=== PATIENT | female | born 1990 | race Caucasian/White ===

== ENCOUNTER → 2020-09-25 16:36 | Outpatient (CLI) | payer OTHER, SELFPAY ==
--- NOTE | ~2020-09-25 | XR_ITS ---
XR chest 2V DATE: 09/25/2020 16:53 INDICATION: Acute lower respiratory infection TECHNIQUE: PA and lateral views COMPARISON: None FINDINGS: Normal heart size. No hilar or mediastinal enlargement. Bilateral hyperinflation. No pulmonary infiltrate or consolidation, pleural effusion or pulmonary vascular congestion or pneumo thorax. IMPRESSION: Bilateral hyperinflation. Reviewed, dictated and finalized at location A. Y PROCESSOR IMPRESSION: Bilateral hyperinflation.
== END ==
PROVIDERS: Visit Provider Family Medicine
DX: J22 Unspecified acute lower respiratory infection (principal); R91.8 Other nonspecific abnormal finding of lung field
CPT/HCPCS: 71046